=== PATIENT | female | born 1975 | race Caucasian/White ===

== ENCOUNTER 2019-11-01 00:04 | Emergency (ER) | payer SELFPAY ==
[2019-11-01 00:07] VITALS: BP 103/71; PULSE 102; RESP 16; TEMP 36.8; O2SAT 97; BMI 26.1
--- NOTE | 2019-11-01 00:36 | USR_ITS ---
PROCEDURE INFORMATION: Exam: US Duplex Left Lower Extremity Veins, Limited Exam date and time: 11/01/2019 12:37 AM Age: 44 years old Clinical indication: Pain; Leg, upper and leg, lower; Left; Additional info: Left leg swelling and pain TECHNIQUE: Imaging protocol: Real-time Duplex ultrasound of the Left Lower Extremity with 2-D wolfe scale, color Doppler flow and spectral waveform analysis with image documentation. Limited exam focused on the left lower extremity veins. COMPARISON: No relevant prior studies available. FINDINGS: Evaluated veins include the left common femoral, proximal profunda femoral, proximal/mid/distal superficial femoral, popliteal, peroneal, and proximal greater saphenous veins. No visible clot in the included veins. The included veins appear normally compressible. Duplex Doppler evaluation demonstrates flow in the evaluated veins. US/CV venous duplex [facility] [id number] IMPRESSION: No evidence of acute left lower extremity DVT.
--- NOTE | 2019-11-01 00:37 | ED_ITS ---
HPI - Extremity Problem General: Chief complaint: Extremity Problem,Nontraumatic Stated complaint: LEG PAIN Time Seen by Provider: 11/01/19 00:06 History of Present Illness: HPI Narrative: Patient is a 44-year-old female comes to the ED with left lower extremity pain and swelling. Patient does have a past medical history of prior blood clots. She does not currently take any blood thinners. Patient states that she had left leg swelling and erythema that started yesterday. She is also having severe pain in the left leg as well. Pain is on the medial side of the calf of the left leg. She rates the pain a 10 out of 10. Most of the pain and swelling is from below the knee. Patient denies any trauma or injury to cause pain and swelling. She has been nauseous for the last 24 hours and has had a mild fever at home. Denies any chest pain, shortness of breath or cough. Associated symptoms: Deny chest pain, fever(s) or rash Review of Systems Const: Denies: fever, chills or fatigue Eyes: Denies: change in vision or eye discomfort ENMT: Denies: throat pain, painful swallowing, nasal discharge or nasal congestion Card: Denies: chest pain, palpitations, edema, swelling of feet/ankles, shortness of breath on exertion or shortness of breath when lying down Resp: Denies: shortness of breath, productive cough or non-productive cough GI: Denies: abdominal pain, nausea, vomiting, diarrhea, constipation or blood in stool : Denies: flank pain, painful urination or blood in urine Musc: Reports: extremity pain (left leg) and extremity swelling (left leg); Denies: neck pain or back pain Skin/Breast: Reports: redness, skin tenderness and new lesion; Denies: rash Neuro: Denies: headache, numbness in extremities or weakness in extremities PFS ED PFSH: Social History Smoking and tobacco status: current every day smoker Female Reproductive History: Date of last menstrual period: 10/17/19 Physical Exam Const: COMMON NORMALS: oriented x3 HENMT: COMMON NORMALS: normocephalic HEAD & SCALP: normocephalic MOUTH: oral and palatal mucosa normal THROAT: posterior oropharynx normal and uvula midline Neck/C-Spine: COMMON NORMALS: supple GENERAL: Yes normal visual inspection Resp: COMMON NORMALS: normal respiratory effort, no retractions, no use of accessory muscles and clear to auscultation bilaterally AUSCULTATION: clear to auscultation bilaterally Cardio: COMMON NORMALS: regular rate, regular rhythm, S1 normal heart sound, S2 normal heart sound, no gallops, no clicks, no murmurs and peripheral pulses 2+ throughout RATE: regular rate RHYTHM: regular rhythm HEART SOUNDS: S1 normal and S2 normal PERIPHERAL PULSES: pulses 2+ throughout GI: COMMON NORMALS: normal to inspection, nondistended, normoactive bowel sounds, soft to palpation, non-tender and no masses PALPATION: Yes soft : COMMON NORMALS: Yes no CVA tenderness BLADDER/KIDNEY EXAM: Yes no CVA tenderness Back/Pelvis: COMMON NORMALS: no CVA tenderness Extremity: GENERAL: Yes normal exam except as noted and Yes edema (left leg- did not check for pitting edema due to severe tenderness.) LEFT LOWER EXTREMITY: Yes lower leg Left lower leg: Yes inspection (Erythema and warmth on the medial side of the lower leg.), Yes palpation (Severe tenderness even upon light touch.) and Yes neurovascular exam (intact- 1+ dorsal ped pulse) Neuro: COMMON NORMALS: oriented x3 and moves all extremities Skin: GENERAL SKIN EXAM: dry skin LESIONS: lesion noted Left lower leg Lesion type: Yes macule Lesion location: medial side of left lower leg Lesion color: Yes red and Yes surrounding erythema Lesion consistency: Yes soft Lesion surface: Yes dry, No draining, Yes shiny and Yes warm Lesion border: Yes smooth and Yes indistinct Lesion tenderness: Yes severe Lesion finding consistent with: Yes cellulitis Course Reevaluation(s): Reevaluation #1: Patient's pain after hydrocodone is still about an 8 out of 10. Told patient I will give her a shot of morphine to help with pain. Patient agreed. Time: 02:17 Vital Signs: Vital signs: Vital Signs Temperature 98.3 F 11/01/19 00:07 Pulse Rate 88 11/01/19 02:59 Respiratory Rate 16 11/01/19 02:59 Blood Pressure 100/70 11/01/19 02:59 Pulse Oximetry 97 11/01/19 02:59 MDM - Extremity (Nontraumatic) MDM Narrative: Medical decision making narrative: Patient comes into the ED with left lower extremity swelling, pain and erythema. Physical exam shows erythema warmth and tenderness around the left calf. Swelling is also present on left calf. Ultrasound venous duplex performed and no blood clots were seen. CBC showed slightly elevated white blood cell count of 10.5. Patient diagnosed with cellulitis and given a dose of Bactrim while here in the ED. Patient was told to follow-up with PCP in 5 days for reevaluation. She was sent home with a prescription for Bactrim and told she can return to the ED to be reevaluated if symptoms worsen after 3 days of antibiotic treatment. Patient understood and agreed with plan. Lab Data: Labs: Lab Results 11/01/19 11/01/19 Range/Units 01:05 01:05 WBC 10.5 H (4.0-10.0) 10^3/ uL RBC 4.43 (4.1-5.3) 10^6/u L Hgb 12.6 (11.5-15.3) g/dL Hct 37.8 (37.0-47.0) % MCV 85.3 (81-99) fL MCH 28.4 (28.0-34.0) pg MCHC 33.3 (30.0-36.0) g/dL RDW 12.7 (12.1-15.1) % Plt Count 242 (130-400) 10^3/c mm MPV 9.9 (7.4-10.4) fL Neut % (Auto) 93.8 % Lymph % (Auto) 2.9 % [place] % (Auto) 2.1 % Eos % (Auto) 0.0 % Baso % (Auto) 0.2 % Neut # (Auto) 9.9 H (1.8-7.7) 10^3/u L Lymph # (Auto) 0.3 L (0.8-4.8) 10^3/u L [place] # (Auto) 0.2 (0.2-0.9) 10^3/u L Eos # (Auto) 0.0 (0.0-0.8) 10^3/u L Baso # (Auto) 0.0 (0.0-0.1) 10^3/u L Nucleated RBC % (a uto) 0 % Nucleated RBCs # 0.0 /100WBC Sodium 133 L (136-145) mmol/L Potassium 3.6 (3.5-5.1) mmol/L Chloride 95 L (98-107) mmol/L Carbon Dioxide 25 (22-29) mmol/L Anion Gap 16.6 (5-19) BUN 11 (6-20) mg/dL Creatinine 0.6 (0.5-0.9) mg/dL GFR Calculation 108.6 (90-130) mL/min Glucose 146 H (65-115) mg/dL Calculated Osmolal ity 275 L (285-295) mOsm/k g Calcium 9.5 (8.5-10.5) mg/dL Total Bilirubin 0.7 (0.15-1.2) mg/dL AST 19 (0-32) U/L ALT 19 (0-33) U/L Alkaline Phosphata se 64 (35-105) IU/L Total Protein 7.5 (6.6-8.7) g/dL Albumin 4.3 (3.5-5.2) g/dL Globulin 3.2 (1.3-4.6) g/dL Imaging Data^: US Vascular: Attestation: I personally reviewed and interpreted this imaging study as follows: Radiologist's impression: Ultrasound venous duplex left lower extremity?prelim report showed no clots. Discharge Plan Discharge Patient Disposition: Home, Self-Care Clinical Impression: Cellulitis Qualifiers: Site of cellulitis: extremity Site of cellulitis of extremity: lower extremity Laterality: left Qualified Code(s): L03.116 - Cellulitis of left lower limb Condition: Stable Prescriptions: New Bactrim DS 800-160 mg tablet 1 tab PO BID 10 Days Qty: 20 RF: 0 Discharge Orders: Discharge Order (Routine); Ordered 11/01/19 Ordered By: Dawit King Referrals: Daphne Metzger FNP [Primary Care Provider] - Discharge Diet: Regular Discharge Activity: Increase activity as tolerated Patient Instructions: Cellulitis (ED) Activity Restrictions/Additional Instructions: Follow-up with your PCP in 5 days for reevaluation. Take full course of antibiotic as prescribed. Take Tylenol or ibuprofen as needed for pain. Return to the ED if symptoms worsen after 3 days of antibiotic treatment. Discharge Date/Time: 11/01/19 04:30 Coding Level of Care Code ED Buzzle Buffer for Chg Fwd Exam Comprehensive
[2019-11-01] MEDS: HYDROcodone-acetaminophen 7.5-325 mg Tablet 1 TAB PO (00:56)
[2019-11-01] MEDS: ondansetron 4 MG Tablet PO (00:57)
[2019-11-01 01:26] LABS: Basophils % 0.2 %; Hematocrit 37.8 % (37.0-47.0); Hemoglobin 12.6 g/dL (11.5-15.3); Lymphocytes # 0.3 10^3/uL (0.8-4.8); Lymphocytes % 2.9 %; Mean Corpuscular HGB Conc 33.3 g/dL (30.0-36.0); Mean Corpuscular Hemoglobin 28.4 pg (28.0-34.0); Mean Corpuscular Volume 85.3 fL (81-99); Mean Platelet Volume 9.9 fL (7.4-10.4); Monocytes # 0.2 10^3/uL (0.2-0.9); Monocytes % 2.1 %; Neutrophils # 9.9 10^3/uL (1.8-7.7); Neutrophils % 93.8 %; Nucleated Red Blood Cells % 0 %; Platelet Count 242 10^3/cmm (130-400); Red Blood Count 4.43 10^6/uL (4.1-5.3); Red Cell Distribution Width 12.7 % (12.1-15.1); White Blood Count 10.5 10^3/uL (4.0-10.0)
[2019-11-01 01:39] LABS: Alanine Aminotransferase 19 U/L (0-33); Albumin Level 4.3 g/dL (3.5-5.2); Alkaline Phosphatase 64 IU/L (35-105); Anion Gap 16.6 (5-19); Aspartate Amino Transferase 19 U/L (0-32); Blood Urea Nitrogen 11 mg/dL (6-20); Calcium 9.5 mg/dL (8.5-10.5); Carbon Dioxide 25 mmol/L (22-29); Chloride 95 mmol/L (98-107); Globulin 3.2 g/dL (1.3-4.6); Glomerular Filtration Rate 108.6 mL/min (90-130); Glucose 146 mg/dL (65-115); Osmolality Calculated 275 mOsm/kg (285-295); Potassium 3.6 mmol/L (3.5-5.1); Sodium 133 mmol/L (136-145); Total Bilirubin 0.7 mg/dL (0.15-1.2); Total Protein 7.5 g/dL (6.6-8.7)
[2019-11-01] MEDS: sulfamethoxazole-trimeth DS 160-800 mg Tablet 1 TAB PO (01:53)
[2019-11-01 02:50] VITALS: RESP 16
[2019-11-01] MEDS: morphine 4 mg/mL SDV 1 mL IM (02:50)
[2019-11-01 02:59] VITALS: BP 100/70; PULSE 88; RESP 16; O2SAT 97
== END 2019-11-01 04:30 | disposition home or self-care (01) ==
PROVIDERS: Emergency Provider Physician Assistant; Family Provider Nurse Practitioner; PCP Nurse Practitioner
DX: L03.116 Cellulitis of left lower limb (principal); F17.210 Nicotine dependence, cigarettes, uncomplicated
CPT/HCPCS: 12345; 80053; 85025; 93971; 96372; 99281; 99283; J2270; Q0162

== ENCOUNTER 2019-11-04 15:24 | Emergency (ER) | payer SELFPAY ==
[2019-11-04 15:25] VITALS: PULSE 95; RESP 17; O2SAT 98
[2019-11-04 15:33] VITALS: BP 107/76; PULSE 104; RESP 17; TEMP 36.4; O2SAT 100; BMI 26.1
--- NOTE | 2019-11-04 15:41 | USCV_ITS ---
Pamella Maloney Age: 44 Gender: F : 1975 Exam Date: 11/04/2019 16:11 Ordering Phys: Bello Banuelos Technologist: Aysha Napier Exam Location: [facility] [place] Indication: VERY RED PAINFUL LOWER LT LEG HISTORY: Painful Lt lower leg PROCEDURES: Venous duplex imaging was performed in only the left lower extremity. The following venous structures were evaluated: common femoral vein, profunda vein, proximal portion of the greater saphenous vein, superficial femoral vein, and the popliteal vein. In addition, the posterior tibial and peroneal trunk were evaluated. Serial compression, augmentation maneuvers, and spectral Doppler flow evaluation were performed. FINDINGS: There is debris in Lt Pop vein. There is good augmentable flow at that point. There are many lymph nodes in the lt groin. No DVT seen in any vessel examined. There is a suggestion of old chronic debris at the Lt Pop vein. That area has augmentable flow and compresses. Echodense strands in the popliteal vein Echo done circumscribed lesions in the left groin CONCLUSIONS Features of possible old DVT with recanalization in the left popliteal vein. Features of enlarged lymph nodes in the left groin Dr Rafita Trinh MD FACC (Electronically Signed) Final Date: 04 November 2019 17:53 S
--- NOTE | 2019-11-04 15:43 | W.ED.EXTPRO ---
HPI - Extremity Problem General: Chief complaint: Extremity Injury, Lower Stated complaint: leg pain Time Seen by Provider: 11/04/19 15:41 Source: patient Mode of arrival: ambulatory Limitations: no limitations History of Present Illness: HPI Narrative: Patient was evaluated on Saturday for similar swelling and redness and was diagnosed with cellulitis. Doppler study at that time was negative for DVT. Patient appears well. Patient appears in mild pain at rest. Patient reports history of previous DVT after and surgery for emergency . Review of Systems General: Reports: 10 or more systems reviewed and unremarkable except in HPI and below Musc: Reports: extremity pain and extremity swelling [facility] ED PFSH: Social History Smoking and tobacco status: current every day smoker Female Reproductive History: Date of last menstrual period: 10/17/19 Physical Exam Const: COMMON NORMALS: no apparent distress and oriented x3 GENERAL APPEARANCE: cooperative HENMT: COMMON NORMALS: normocephalic, TM's normal bilaterally and external nose normal HEAD & SCALP: normal to inspection and normocephalic NOSE: external nose normal TYMPANIC MEMBRANE: TM's normal bilaterally MOUTH: oral and palatal mucosa normal THROAT: posterior oropharynx normal Eye: GENERAL EYE: normal appearance of both eyes Neck/C-Spine: COMMON NORMALS: full ROM Lymph: LYMPHATIC: no lymphadenopathy noted Chest: COMMONS NORMALS: inspection of chest normal Resp: COMMON NORMALS: normal respiratory effort EFFORT & INSPECTION: Yes able to speak in complete sentences Cardio: COMMON NORMALS: regular rate and regular rhythm RATE: regular rate RHYTHM: regular rhythm GI: COMMON NORMALS: non-tender : COMMON NORMALS: Yes no CVA tenderness BLADDER/KIDNEY EXAM: Yes no CVA tenderness Back/Pelvis: COMMON NORMALS: no CVA tenderness and thoracic and lumbar spine normal to inspection Extremity: NARRATIVE EXTREMITY EXAM: Redness and swelling to the left lower leg. Pulses are intact. Positive Homans sign. Neuro: COMMON NORMALS: oriented x3 and moves all extremities Psych: COMMON NORMALS: mental status grossly normal and cooperative Skin: COMMON NORMALS: no rashes or lesions noted GENERAL SKIN EXAM: no rashes or lesions noted Course Vital Signs: Vital signs: Vital Signs Temperature 97.6 F 11/04/19 15:33 Pulse Rate 104 H 11/04/19 15:33 Respiratory Rate 17 11/04/19 15:33 Blood Pressure 107/76 11/04/19 15:33 Pulse Oximetry 100 11/04/19 15:33 MDM - Extremity (Nontraumatic) MDM Narrative: Medical decision making narrative: Patient comes in today for persistent redness and swelling to the left lower leg. Patient reports that appearing worse than what it did 2 days ago when she was evaluated. Patient was diagnosed with cellulitis 2 days ago and started on Bactrim. Exam notes significant redness and swelling to the left lower leg. Pulses are intact. Patient had positive Homans sign. Differential diagnosis includes DVT to the left lower extremity, cellulitis, lymphedema. Ultrasound Doppler study of the left lower extremity noted no DVT. It was noted patient had several lymph nodes in the upper part of the extremity. We will change patient's antibiotic to clindamycin and Cipro for better broad-spectrum coverage. Encourage patient drink plenty of water patient be treated with pain reviewed with patient recommendations for further treatment and evaluation with follow-up. Patient reported understanding. Discharge Plan Discharge Patient Disposition: Home, Self-Care Clinical Impression: Cellulitis Qualifiers: Site of cellulitis: extremity Site of cellulitis of extremity: lower extremity Laterality: left Qualified Code(s): L03.116 - Cellulitis of left lower limb Condition: Stable Prescriptions: New clindamycin HCl 300 mg capsule 300 mg PO QID 10 Days Qty: 40 RF: 0 Cipro 500 mg tablet 500 mg PO BID Qty: 20 RF: 0 hydrocodone-acetaminophen 5-325 mg tablet 1 tab PO Q8H PRN (Reason: pain (scale score 7-10)) Qty: 10 RF: 0 No Action sulfamethoxazole-trimethoprim [Bactrim DS] 800-160 mg tablet 1 tab PO BID 10 Days Qty: 20 RF: 0 Tylenol 325 mg Tablet 325 mg PO QID PRN (Reason: Pain) RF: 0 Discharge Orders: Discharge Order (Routine); Ordered 11/04/19 Ordered By: Bello Banuelos Referrals: Daphne Metzger FNP [Family Provider] - Discharge Diet: Usual diet Discharge Activity: Increase activity as tolerated Patient Instructions: Cellulitis (ED) Activity Restrictions/Additional Instructions: Home and rest. Drink plenty of water with medication. Take medications as directed. Follow-up with primary care and 3 days for recheck. Return to the ER for high fever, worsening symptoms, or new concerns. Coding Level of Care Code ED Analytical Data Miner for Chg Fwd Exam Comprehensive
[2019-11-04] MEDS: ciprofloxacin 500 mg Tablet PO (16:46)
[2019-11-04] MEDS: HYDROcodone-acetaminophen 7.5-325 mg Tablet 1 TAB PO (16:46)
[2019-11-04] MEDS: clindamycin 150 mg/mL SDV 6 mL 300 MG IM (16:46)
[2019-11-04 17:39] VITALS: BP 121/68; PULSE 93; RESP 15; O2SAT 97
== END 2019-11-04 17:40 | disposition home or self-care (01) ==
PROVIDERS: Emergency Provider Nurse Practitioner Family; Family Provider Nurse Practitioner
DX: L03.116 Cellulitis of left lower limb (principal); F17.210 Nicotine dependence, cigarettes, uncomplicated
CPT/HCPCS: 12345; 93971; 96372; 99282; 99283; J3490

== ENCOUNTER → 2020-10-18 11:43 | Outpatient (BNVA) | payer SELFPAY | PROVIDERS: Family Provider Nurse Practitioner; PCP Nurse Practitioner Family; Visit Provider Nurse Practitioner Family | DX: R60.0 Localized edema (principal); Z86.718 Personal history of other venous thrombosis and embolism; E55.9 Vitamin D deficiency, unspecified; R53.83 Other fatigue; Z13.6 Encounter for screening for cardiovascular disorders; Z79.899 Other long term (current) drug therapy | CPT/HCPCS: 80053; 80061; 82306; 83036; 84439; 84443; 85025; 85610 ==

== ENCOUNTER 2020-10-26 08:15 | Outpatient (CLI) | payer SELFPAY ==
--- NOTE | 2020-10-26 08:45 | US_ITS ---
WS: [id number] ULTRASOUND SOFT TISSUES LEFT groin. HISTORY: Z86.718 - Personal history of other venous thrombosis and embolism COMPARISON: None available. TECHNIQUE: 2-D and color Doppler imaging is submitted. Normal lymph nodes at the LEFT groin. No soft tissue masses identified. No abnormality. US/US soft tissue/extremity [id number] IMPRESSION: Normal ultrasound LEFT groin.
== END 2020-10-26 08:16 | disposition home or self-care (01) ==
LOC: RAD 08:20
PROVIDERS: PCP Nurse Practitioner Family; Visit Provider Nurse Practitioner Family
DX: Z86.718 Personal history of other venous thrombosis and embolism (principal); R60.0 Localized edema
CPT/HCPCS: 76882

== ENCOUNTER 2020-10-26 11:24 | Outpatient (CLI) | payer SELFPAY ==
--- NOTE | 2020-10-26 13:00 | CT_ITS ---
WS: [id number] CT ABDOMEN AND PELVIS WITH CONTRAST HISTORY: Z87.898 - Personal history of other specified conditions, LEFT groin pain and leg swelling. TECHNIQUE: Imaging performed of the abdomen and pelvis with IV contrast. Single phase imaging of the abdomen. Coronal and sagittal reformats are submitted. All CT scans at [facility] use at least one of these dose optimization techniques: automated exposure control; mA and/or kV adjustment per patient size (includes targeted exams where dose is matched to clinical indication); or iterativ e reconstruction. IV CONTRAST: Visipaque 320; 95 mL IV. Oral contrast: Yes. DLP: 1603.05 mGy.cm COMPARISON: None available. Lower thorax: Lung bases are clear. Heart is normal size. Large hiatal hernia. Liver/biliary system: Liver is normal size. There is a very mild central bile duct dilatation of unce rtain etiology. Common bile duct is slightly enlarged. No mass at the pancreatic head. Gallbladder: Normal. No gallstones or wall thickening. No pericholecystic fluid. Pancreas: Moderate atrophy of the pancreatic body and tail. Spleen: Normal. Adrenal glands: Normal. Right kidney: Normal. Left kidney: Normal. Aorta: Circumaortic LEFT renal vein. No aneurysm. Lymphadenopathy: Small iliac chain and inguinal lymph nodes measure up to 7 mm. Free fluid: Very small amount of free fluid in the cul-de-sac. GI tract: Diffuse moderate constipation. No obstruction. The appendix is normal. Abdominal wall: Unremarkable abdominal wall. No hernia. Pelvis: Urinary bladder is normally distended. Normal appearance of uterus. No adnexal masses. No rc nopathy. Small benign-appearing lymph nodes along the iliac chains and at the inguinal regions. Bones: Unremarkable. CT/CT abdomen pelvis w con* [id number] IMPRESSION: 1. Moderate diffuse constipation and fecal retention. No obstruction. 2. No adenopathy in the abdomen or pelvis. 3. No pelvic mass. 4. Tiny amount of free fluid in the cul-de-sac is probably physiologic. 5. Mild intrahepatic biliary duct dilatation and mild pancreatic atrophy. Cons ider follow-up MRCP. No mass identified.
[2020-10-26] MEDS: iodixanol 320 mg/mL 100mL Btl IV (13:01)
[2020-10-26] MEDS: iohexol 300 mg/mL 50 mL Btl PO (14:29)
== END 2020-10-26 11:25 | disposition home or self-care (01) ==
PROVIDERS: PCP Nurse Practitioner Family; Visit Provider Nurse Practitioner Family
DX: R60.0 Localized edema (principal); Z86.718 Personal history of other venous thrombosis and embolism; Z87.898 Personal history of other specified conditions; K86.89 Other specified diseases of pancreas
CPT/HCPCS: 74177

== ENCOUNTER → 2020-10-27 00:01 | Outpatient (BNVA) | payer SELFPAY | PROVIDERS: PCP Nurse Practitioner Family; Visit Provider Nurse Practitioner Family | DX: K86.89 Other specified diseases of pancreas (principal); K83.8 Other specified diseases of biliary tract; R60.0 Localized edema | CPT/HCPCS: 82150; 83690 ==

== ENCOUNTER 2020-11-08 10:57 | Outpatient (CLI) | payer SELFPAY ==
--- NOTE | 2020-11-08 11:00 | USCV_ITS ---
Pamella Maloney Age: 45 Gender: F : 1975 Exam Date: 11/08/2020 11:33 Ordering Phys: Brayden Pineda MD Technologist: Bell Hough Exam Location: [facility] – [place] Indication: EDEMA HISTORY: HX LT DVT AND CELLULITIS NOT ON BLOOD THINNERS PROCEDURES: Venous duplex imaging was performed in only the left lower extremity. The following venous structures were evaluated: common femoral vein, profunda vein, proximal portion of the greater saphenous vein, superficial femoral vein, and the popliteal vein. In addition, the posterior tibial and peroneal trunk were evaluated. FINDINGS: Normal 2-D Doppler and augmentation and compressibility throughout the lower extremity venous structures. Additional imaging through the proximal calf veins also reveals no thrombus. Limited evaluation of the greater saphenous vein is patent with no thrombus. There is subcutaneous left lower extremity edema noted. CONCLUSIONS No DVT left lower extremity. Dr. Paige Watkins DO (Electronically Signed) Final Date: 08 November 2020 14:13 S
== END 2020-11-08 10:58 | disposition home or self-care (01) ==
LOC: RAD 10:57
PROVIDERS: PCP Nurse Practitioner Family; Visit Provider Family Medicine
DX: R60.0 Localized edema (principal); Z86.718 Personal history of other venous thrombosis and embolism
CPT/HCPCS: 93971

== ENCOUNTER 2020-11-09 13:46 | Outpatient (CLI) | payer SELFPAY ==
--- NOTE | 2020-11-09 14:15 | USR_ITS ---
PROCEDURE INFORMATION: Exam: US Duplex Left Lower Extremity Arteries Or Arterial Bypass Grafts Exam date and time: 11/09/2020 2:07 PM Age: 45 years old Clinical indication: Pain; Leg, lower; Left; Prior surgery; Surgery date: 1-6 months; Additional info: R60.0 - localized edema TECHNIQUE: Imaging protocol: Left Real-time duplex scan of the arteries or arterial bypass grafts of the left lower extremity with 2-D wolfe scale, color Doppler flow and spectral waveform analysis. Images documented and saved. COMPARISON: US soft tissue/extremity [id number] 10/26/2020 8:42 AM FINDINGS: Left common femoral artery: No occlusion or significant stenosis. Normal waveform. Left superficial femoral artery: No occlusion or significant stenosis. Normal waveform. Left popliteal artery: No occlusion or significant stenosis. Normal waveform. Left calf/foot arteries: No occlusion or significant stenosis in the visualized arteries. Normal waveforms. Dorsalis pedis artery is patent. Ankle brachial index 1.1 by US/CV arterial duplex [facility] [id number] IMPRESSION: No stenosis or occlusion.
== END 2020-11-09 13:47 | disposition home or self-care (01) ==
LOC: RAD 13:48
PROVIDERS: PCP Nurse Practitioner Family; Visit Provider Family Medicine
DX: R60.0 Localized edema (principal)
CPT/HCPCS: 93926

== ENCOUNTER → 2022-09-21 11:26 | Outpatient (BNVA) | payer BC, SELFPAY | PROVIDERS: PCP Nurse Practitioner; Visit Provider Nurse Practitioner | DX: Z00.00 Encounter for general adult medical examination without abnormal findings (principal); Z12.31 Encounter for screening mammogram for malignant neoplasm of breast; Z13.6 Encounter for screening for cardiovascular disorders | CPT/HCPCS: 80053; 80061; 83036; 84443; 85025 ==

== ENCOUNTER 2022-10-12 12:56 | Outpatient (CLI) | payer BC, SELFPAY ==
--- NOTE | 2022-10-12 15:00 | MM_ITS ---
WS: [id number] BILATERAL 3D TOMOSYNTHESIS DIGITAL SCREENING MAMMOGRAPHY WITH CAD CLINICAL INFORMATION: Z12.31 - Encounter for screening mammogram for malignant ... HISTORY: Screening mammogram. Chronic blue breast discharge. Lumpy outside breasts bilaterally COMPARISON: RIGHT diagnostic 2013 TECHNIQUE: Bilateral CC and MLO views. FINDINGS: The breasts are composed of heterogeneous fibroglandular density tissue, which can limit the detectio n of small underlying mass lesions. No suspicious mass, asymmetry, calcifications, or architectural d istortion. No evidence of malignancy. Stable heterogeneous dense breast tissue upper outer RIGHT arlene st posteriorly MM/[place] [id number] IMPRESSION: BI-RADS: 2-Benign FOLLOW UP: 1 Year Follow-up Recommend return to annual screening mammography.
== END 2022-10-12 12:57 | disposition home or self-care (01) ==
LOC: RAD 12:59
PROVIDERS: PCP Nurse Practitioner; Visit Provider Nurse Practitioner
DX: Z12.31 Encounter for screening mammogram for malignant neoplasm of breast (principal)
CPT/HCPCS: 77063; 77067

== ENCOUNTER → 2023-06-28 11:51 | Outpatient (BNVA) | payer BC, SELFPAY | PROVIDERS: PCP Nurse Practitioner; Visit Provider Nurse Practitioner Family | DX: R53.83 Other fatigue (principal); E55.9 Vitamin D deficiency, unspecified; Z79.899 Other long term (current) drug therapy; K86.89 Other specified diseases of pancreas; K83.8 Other specified diseases of biliary tract; D64.9 Anemia, unspecified; R49.0 Dysphonia | CPT/HCPCS: 80053; 80061; 81003; 82306; 82607; 83036; 83550; 83690; 84439; 84443; 84481; 85025; 87426 ==